=== PATIENT | male | born 1970 | race Caucasian/White ===

== ENCOUNTER 2022-06-15 18:36 | Emergency (ER) | payer OTHER, SELFPAY ==
--- NOTE | 2022-06-15 18:53 | ED.URI ---
HPI - URI/Sore Throat General Chief Complaint: Upper Respiratory Infection Stated Complaint: nasal congestion,bilateral ear discomfort Time Seen by Provider: 06/15/22 18:54 Source: patient and RN notes reviewed Mode of arrival: ambulatory Limitations: no limitations History of Present Illness HPI Narrative: 51-year-old male presents to the [facility] with complaints of bilateral ear discomfort and nasal congestion. History of ruptured eardrums. Reports leaking out of his ears from his eardrums. Right started on Tuesday, left started on Tuesday. Denies any fevers. No dizziness. No chest pain or abdominal pain. States the nasal congestion and pressure started over a week ago possibly 10 days. Related Data Home Medications Medication Instructions Recorded Confirmed latanoprost 0.005 % eye drops 1 drp DIRECTED 06/15/22 06/15/22 Allergies Allergy/AdvReac Type Severity Reaction Status Date / Time No Known Allergies Allergy Verified 06/15/22 19:01 Review of Systems Review of Systems: All systems reviewed & are unremarkable except as noted in HPI and below Constitutional: Constitutional: Reports no additional constitutional complaints, Denies chills and Denies fever(s) Eyes: Eyes: Reports no additional eye complaints ENT: Reports as per HPI, Reports otalgia, Reports nasal congestion and Reports sinus pressure Cardiovascular: Cardiovascular: Reports no additional cardiovascular complaints Respiratory: Respiratory: Reports no additional respiratory complaints Gastrointestinal: Gastrointestinal: Reports no additional gastrointestinal complaints Musculoskeletal: Musculoskeletal: Reports no additional musculoskeletal complaints Integumentary/Breasts: Skin/Breast: Reports system reviewed and no additional complaints, except as docu Neurologic: Reports system reviewed and no additional complaints, except as documented Psychiatric: Psychiatric: Reports no additional psychiatric complaints Allergic/Immunologic: Allergic/Immunologic: Reports no additional allergic/immunologic complaints PMFSH Surgical History Surgical History (Updated 06/15/22 @ 19:27 by Karma Sorensen APRN) No pertinent past surgical history Comments At the time of my signature, I reviewed and agree with the nursing past medical, surgical, social, and family history. There is no relevant family history pertinent to the patient complaint. Exam Const: General: healthy appearing, no acute distress and alert Nutritional Appearance: well nourished Orientation/consciousness: patient oriented x3 Limitations: no limitations HENMT: Head: normal to inspection Ears: external ears normal, Abnormal EAC present erythema on the left and edema on the left and TM abnormal bulging bilateral, erythematous bilateral and perforated with purulent discharge on the left General nose exam: Normal external nose present Face and sinus: sinus tenderness frontal and maxillary Mouth: Yes Normal oral and palatal mucosa present, Yes lip normal and Yes moist mucous membranes Throat: posterior oropharynx normal and uvula midline Eyes: General: appearance normal, both eyes and all related structures Pupils: Equal, round and reactive pupils present Neck: Neck: normal visual inspection, no lymphadenopathy and no meningeal signs Chest: Chest palpation & inspection: normal inspection of the chest Resp: Effort & Inspection: normal respiratory effort and no use of accessory muscles Auscultation: clear to auscultation bilaterally, no crackles, no rales, no rhonchi and no wheezes Cardio: Rate: regular rate Rhythm: regular rhythm Skin: General skin exam: normal color Rashes: no rashes Wounds: no wounds Neuro: General: patient oriented x3, moves all extremities, no meningeal signs and no focal motor deficits Cranial nerves: Yes Equal, round and reactive pupils present Speech: normal speech Gait exam (Neuro): Normal gait present Extrem: General: normal to inspection, full
[2022-06-15 18:57] VITALS: BP 153/95; PULSE 98; RESP 18; TEMP 37; O2SAT 100
== END 2022-06-15 19:11 | disposition home or self-care (01) ==
PROVIDERS: Emergency Provider Nurse Practitioner
DX: H66.93 Otitis media, unspecified, bilateral (principal); J01.90 Acute sinusitis, unspecified; H72.92 Unspecified perforation of tympanic membrane, left ear; H40.9 Unspecified glaucoma
CPT/HCPCS: 99213; G0463

== ENCOUNTER 2024-03-29 11:38 | Emergency (ER) | payer OTHER, SELFPAY ==
[2024-03-29 11:58] VITALS: BP 150/88; PULSE 107; RESP 18; TEMP 36.4; O2SAT 98
[2024-03-29 11:59] VITALS: BP 150/88; PULSE 107; RESP 18; TEMP 36.4; O2SAT 98
--- NOTE | 2024-03-29 12:14 | ED.URI ---
HPI - URI/Sore Throat General Chief Complaint: Upper Respiratory Infection Stated Complaint: fever,cough,nasal drainage Time Seen by Provider: 03/29/24 12:10 Source: patient, RN notes reviewed and old records reviewed Mode of arrival: ambulatory Limitations: no limitations History of Present Illness HPI Narrative: 53-year-old male who presents to [facility] with complaints of 3 day duration left ear pain, nasal congestion and productive cough of yellowish-green drainage, with fevers up to 101F Patient reports he has been taking Mucinex, Tylenol, phenylephrine OTC for his symptoms. Patient reports has history of some ear problems in the past, denies any acute cough or body aches. MD elicited complaint: cough, rhinorrhea, nasal congestion and other (ear pain) Pertinent past history: other (ear problems) Onset (ago): day(s) (3) Severity: moderate Description of mucous: yellow and green Treatments prior to arrival: acetaminophen and other (mucinex) Related Data Home Medications Medication Instructions Recorded Confirmed latanoprost 0.005 % eye drops 1 drp DIRECTED 06/15/22 03/29/24 amlodipine 5 mg tablet mg 03/29/24 03/29/24 Allergies Allergy/AdvReac Type Severity Reaction Status Date / Time No Known Allergies Allergy Verified 03/29/24 11:59 Review of Systems Review of Systems: CONSTITUTIONAL: Reports malaise, chills, sweats, or fever. EYES: Denies visual changes, redness, or discharge. ENT: Reports rhinorrhea, congestion, sinus pain,left otalgia and sore throat. CARDIOVASCULAR: Denies chest pain, palpitations, or edema. RESPIRATORY: Reports no cough.? Denies dyspnea. GASTROINTESTINAL: Denies abdominal pain, nausea, vomiting, diarrhea SKIN: Denies rash or itching. MUSCULOSKELETAL: Denies myalgia. NEUROLOGIC: Denies headache. All systems reviewed & are unremarkable except as noted in HPI and below PMFSH Past Medical History Medical History (Updated 03/31/24 @ 08:10 by Nadine Medrano NP) Crohn disease of colon in remission Glaucoma Hypertension Surgical History Surgical History (Updated 03/31/24 @ 08:10 by Nadine Medrano NP) History of appendectomy History of bowel resection History of ear surgery Social History Social History Smoking status: Never smoker Alcohol intake: current Alcohol use details: social Substance use type: does not use Gender identity (if verbalized by the patient): Male Comments At time of signature, agree with nursing past medical, surgical, social and family history. There is no relevant family history pertinent to the presenting complaint Exam Narrative: GENERAL: Well-appearing, well-nourished, and in no acute distress. HEAD: Normocephalic EYES: PERRLA, conjunctivae clear ENT: Nares clear, turbinates edematous and erythematous,yellow discharge. Mucous membranes moist.Left TM red and bulging,Right TM pearly mendoza with dull light reflex; no tragal tenderness. Oropharynx erythematous without lesions. Tonsils not enlarged and without exudate, no drooling, no hoarseness, no trismus, uvula midline.post nasal drainage NECK: Supple. No lymphadenopathy CHEST: Clear to auscultation, breath sounds equal. No wheezing, rhonchi, rales, or stridor. No respiratory distress, speaks in full sentences.SAO2 98% on room air HEART: Regular rate and rhythm. No murmur heard. SKIN: Warm, dry, no rash. NEURO: Alert and oriented x3. PSYCH: Normal mood and affect Course Course Emergency Course: Patient is aware of diagnosis, understands and agrees to treatment plan.? Anticipatory guidance given.? Patient agrees to follow-up as directed and is aware of reasons to seek care at the emergency department. Portions of this record may have been created with voice recognition software Level of Care: Express Care Visit Vital Signs Vital signs: Vital Signs Temperature 36.4 C 03/29/24
[2024-03-29 12:26] LABS: EDINFLUASCREEN Negative; EDINFLUBSCREEN Negative
== END 2024-03-29 12:40 | disposition home or self-care (01) ==
PROVIDERS: Emergency Provider Registered Nurse; PCP Nurse Practitioner
DX: H66.92 Otitis media, unspecified, left ear (principal); R09.81 Nasal congestion; Z20.822 Contact with and (suspected) exposure to COVID-19; H40.9 Unspecified glaucoma; I10 Essential (primary) hypertension
CPT/HCPCS: 87426; 87804; 99213; G0463

== ENCOUNTER 2024-04-06 12:58 | Emergency (ER) | payer OTHER, SELFPAY ==
--- NOTE | 2024-04-06 13:08 | ED.URI ---
HPI - URI/Sore Throat General Chief Complaint: Upper Respiratory Infection Stated Complaint: cough,fever,runny nose Time Seen by Provider: 04/06/24 13:11 Source: patient Mode of arrival: ambulatory Limitations: no limitations History of Present Illness HPI Narrative: Fernandez is a 53-year-old male who presents to the clinic today with complaints of nasal congestion and runny nose. He was seen at the [facility] on 03/29/24 for similar symptoms along with complaints of left ear pain and was prescribed antibiotics. He states that his left ear pain has improved however his nasal congestion has not and has even slightly worsened. He reports continued cough, sore throat, and sinus pressure. He also states that he felt like he had a fever last night along with chills but did not check his temperature. He denies any associated shortness of breath or chest pain. MD elicited complaint: sore throat and nasal congestion Related Data Home Medications Medication Instructions Recorded Confirmed latanoprost 0.005 % eye drops 1 drp DIRECTED 06/15/22 04/06/24 amlodipine 5 mg tablet 5 mg DIRECTED 03/29/24 04/06/24 amoxicillin 875 mg-potassium 1 tablet DIRECTED 04/06/24 04/06/24 clavulanate 125 mg tablet Allergies Allergy/AdvReac Type Severity Reaction Status Date / Time No Known Allergies Allergy Verified 03/29/24 11:59 Review of Systems Review of Systems: Pertinent positives per HPI. Patient denies any rash, visual changes, dizziness, shortness of breath, chest pain, palpitations, nausea, vomiting, diarrhea, constipation, abdominal pain, or any urinary issues. [facility] Past Medical History Medical History Crohn disease of colon in remission Glaucoma Hypertension Surgical History Surgical History History of appendectomy History of bowel resection History of ear surgery Social History Social History Smoking status: Never smoker Alcohol intake: current Alcohol use details: social Substance use type: does not use Gender identity (if verbalized by the patient): Male Comments At the time of my signature, I reviewed and agree with the nursing past medical, surgical, social, and family history. There is no relevant family history pertinent to the patient complaint. Exam Narrative: General: Well-developed, well nourished, in no apparent distress Head: Normocephalic, atraumatic Eyes: Pupils equally round and reactive to light bilaterally, EOM intact, sclera and conjunctive clear, no discharge, lids normal Ears: Left TM with chronic rupture, right TM intact, BL effusion and inflammation, grossly hearing normal. Nose: Nares patent, mild sinus tenderness. Mouth: Oral pharynx without lesions or masses, good dentition, MMM. Neck: Supple, trachea midline Cardio: Regular rate and rhythm, s1 and s2 normal, no murmur appreciated. Resp: Mild expiratory wheezing to bilateral lower lung cortez, upper lung cortez clear to auscultation Course Course Emergency Course: Portions of this record may have been created with voice recognition software. Level of Care: Express Care Visit Vital Signs Vital signs: Vital signs reviewed MDM - URI/Sore Throat MDM Narrative Medical decision making narrative: At the time of visit patient is resting comfortably on the exam table. Patient appears to be nontoxic. Plan: I suspect patient has ongoing sinusitis that is resolving. Will have him continue taking his Augmentin prescription and place him on prednisone. Supportive measures were discussed with the patient and they voiced understanding discharge instructions and agrees to treatment plan. Return precautions reviewed Differential Diagnosis Differential diagnosis: Likely upper respiratory infection, otitis media, sinusitis, viral infecti
[2024-04-06 13:10] VITALS: BP 147/93; PULSE 93; RESP 20; TEMP 36.6; O2SAT 99
== END 2024-04-06 13:25 | disposition home or self-care (01) ==
PROVIDERS: Emergency Provider Nurse Practitioner Family; PCP Nurse Practitioner
DX: J01.90 Acute sinusitis, unspecified (principal); H40.9 Unspecified glaucoma; I10 Essential (primary) hypertension
CPT/HCPCS: 99213; G0463